=== PATIENT | male | born 1980 ===

== ENCOUNTER 2017-04-01 10:17 | Emergency (ER) | payer OTHER ==
[2017-04-01 11:00] VITALS: BP 139/85; PULSE 64; RESP 18; TEMP 98; O2SAT 99
--- NOTE | 2017-04-01 11:32 | ED PDOC ---
HPI: General Adult Time Seen by Provider: 04/01/17 11:25 Chief Complaint (Nursing): Abdominal Pain Chief Complaint (Provider): flank pain History Per: Patient History/Exam Limitations: no limitations Additional Complaint(s): 36yo male comes to the ED complains of right upper flank pain radiating into the scrotum. He reports that he has had similar pain with renal stones, but this pain feels worse. Reports multiple episodes of vomiting and diarrhea since last night. Denies dysuria. Denies hematuria- but reports "urine has been cloudy." Denies chest pain or shortness of breath. Denies scrotal pain or swelling. Denies penile discharge. Past Medical History Reviewed: Historical Data, Nursing Documentation, Vital Signs Vital Signs: Last Vital Signs Temp 98 F 04/01/17 10:57 Pulse 64 04/01/17 10:57 Resp 18 04/01/17 10:57 BP 139/85 04/01/17 10:57 Pulse Ox 99 04/01/17 14:54 - Surgical History Surgical History: Appendectomy, Tonsillectomy - Family History Family History: States: Unknown Family Hx - Immunization History Hx Tetanus Toxoid Vaccination: No Hx Influenza Vaccination: No Hx Pneumococcal Vaccination: No - Allergies Allergies/Adverse Reactions: Allergies Allergy/AdvReac Type Severity Reaction Status Date / Time No Known Allergies Allergy Verified 04/01/17 10:57 Review of Systems ROS Statement: Except As Marked, All Systems Reviewed And Found Negative Constitutional: Negative for: Fever Cardiovascular: Negative for: Chest Pain, Palpitations, Paroxysmal Noc. Dyspnea , Edema, Light Headedness, Other Respiratory: Negative for: Cough, Shortness of Breath, SOB with Exertion, Wheezing Gastrointestinal: Positive for: Vomiting, Abdominal Pain, Diarrhea Genitourinary Male: Negative for: Dysuria, Hematuria (darkened color) Musculoskeletal: Positive for: Back Pain (R sided flank) Skin: Negative for: Rash Physical Exam - Reviewed Nursing Documentation Reviewed: Yes Vital Signs Reviewed: Yes - Physical Exam Appears: Positive for: Well, Non-toxic, No Acute Distress Head Exam: Positive for: ATRAUMATIC, NORMAL INSPECTION, NORMOCEPHALIC Skin: Positive for: Warm, Dry Eye Exam: Positive for: EOMI, PERRL Cardiovascular/Chest: Positive for: Regular Rate, Rhythm Respiratory: Positive for: Normal Breath Sounds. Negative for: Rales, Rhonchi, Wheezing Gastrointestinal/Abdominal: Positive for: Normal Exam, Bowel Sounds, Soft. Negative for: Tenderness, Guarding, Rebound Back: Negative for: L CVA Tenderness, R CVA Tenderness Extremity: Positive for: Normal ROM Neurologic/Psych: Positive for: Alert - Laboratory Results Result Diagrams: 04/01/17 12:20 04/01/17 12:20 - ECG O2 Sat by Pulse Oximetry: 99 (RA) Pulse Ox Interpretation: Normal Medical Decision Making Medical Decision Makin Differential includes renal colic vs pancreatitis vs UTI Plan: CT abd/pel w/o Labs IV Fluids Toradol Morphine Urine culture reassess 1:52PM CT negative for stone. UA shows hematuria- likely passed stone. UA shows trace leukocytes and only 5 wbc and could be contanimated as large amount of blood. Chance that there is radiolucent stone but no sign of hydronephrosis on CT. Will give referral to urology. CBC WNL and creatinine and GFR WNL. Patient is afebrile and well appearing. He reports persistent back pain, described as spasm to R sided of back. Valium also ordered.. CT abd/pel Findings Lower thorax: unremarkable Liver: unremarkable. no gross lesion or ductal dilation. Gallbladder and bile ducts: unremarkable. Pancreas: unremarkable. no gross lesion or ductile dilation. Spleen: unremarkable. adrenals: unremarkable. no mass kidneys and ureter: unremarkable. no hydronephrosis. no solid mass. vasculature: unremarkable. no aortic aneurysm. bowel: unremarkable. no obstruction. no gross mural thickening. appendix: unremarkable. normal appendix. peritoneum: unremarkable. no free fluid. no free air. lymph nodes: unremarkable. no enlarged lymph nodes. bladder: unremarkable. reproductive: unremarkable. bones: no acute fracture other findings: none Impression: no significant or acute findings to account for/related to the clinical presentation. Guerrero unremarkable noncontrast enhanced CT of the abdomen and pelvis. 2:50PM Patient is now pain free. He is tolerating po and well appearing. Ucx sent. Will dc patient. Disposition - Clinical Impression Clinical Impression: Hematuria - Disposition Referrals: Bhupendra Stephen MD [Medical Doctor] - Disposition: Routine/Home Disposition Time: 13:55 Condition: GOOD Additional Instructions: Follow up with PMD within 2 days. Return to ED if condition worsens. Follow up with urology within 2 days. Increase fluids. Instructions: Acute Hematuria (ED), Acute Low Back Pain (ED) Forms: [facility] ED School/Work Excuse Additional Comments - Additional Comments Additional Comments: Scribe Attestation Documented by Adam Hewitt acting as a scribe for Matthew Maguire MD. Provider Attestation: All medical record entries made by the Scribe were at my direction and personally dictated by me. I have reviewed the chart and agree that the record accurately reflects my personal performance of the history, physical exam, medical decision making, and the department course for this patient. I have also personally directed, reviewed, and agree with the discharge instructions and disposition.
[2017-04-01] MEDS ORDERED: Sodium Chloride 0.9% 1,000 ML IV SCH (11:45)
[2017-04-01 12:27] LABS: BASO % 0.4 % (0.0-2.0); EOS # 0.1 K/uL (0.0-0.7); EOS % 1.4 % (0.0-4.0); LYMPH # 1.8 K/uL (1.0-4.3); LYMPH % 17.8 % (20.0-40.0); MEAN CELL VOLUME 89.5 fl (80.0-94.0); MEAN CORPUSCULAR HEMOGLOBIN 30.9 pg (27.0-31.0); MEAN CORPUSCULAR HGB CONC 34.5 g/dL (33.0-37.0); MEAN PLATELET VOLUME 7.7 fl (7.2-11.7); MONO # 0.6 K/uL (0.0-0.8); MONO % 6.3 % (0.0-10.0); NEUT # 7.4 K/uL (1.8-7.0); NEUT % 74.1 % (50.0-75.0); NRBC % 0.1 % (0.0-0.0); RED CELL DISTRIBUTION WIDTH 12.9 % (11.5-14.5); WHITE BLOOD COUNT 9.9 K/uL (4.8-10.8)
[2017-04-01 12:48] LABS: ALB/GLOB RATIO 1.4 (1.0-2.1); ALKALINE PHOSPHATASE 67 U/L (38-126); ALT/SGPT 57 U/L (21-72); AST/SGOT 32 U/L (17-59); BILIRUBIN,TOTAL 0.4 mg/dl (0.2-1.3); BLOOD UREA NITROGEN 13 mg/dl (9-20); CALCIUM 9.4 mg/dL (8.4-10.2); CARBON DIOXIDE 28 mmol/L (22-30); CHLORIDE 104 mmol/L (98-107); GFR AFRICAN-AMERICAN > 60; GLUCOSE,RANDOM 89 mg/dL (75-110); LIPASE 57 U/L (23-300); POTASSIUM 4.1 MMOL/L (3.6-5.0); SODIUM 143 mmol/l (132-148); TOTAL PROTEIN 7.9 G/DL (6.3-8.2)
[2017-04-01 13:26] LABS: RBC URINE 265 /hpf (0-3); URINE BACTERIA RARE (<OCC); URINE BILIRUBIN NEGATIVE (NEGATIVE); URINE BLOOD LARGE (NEGATIVE); URINE COLOR STRAW (YELLOW); URINE GLUCOSE (UA) NEG (Normal); URINE KETONE NEGATIVE (NEGATIVE); URINE LEUKOCYTE ESTERASE TRACE Leu/uL (Negative); URINE PROTEIN NEGATIVE (NEGATIVE); URINE UROBILINOGEN 0.2-1.0 mg/dL (0.2-1.0); WBC URINE 5 /hpf (0-5)
--- NOTE | 2017-04-01 13:36 | CT ---
PROCEDURE: CT Abdomen and Pelvis without intravenous contrast HISTORY: abdominal pain, dysuria, hematuria,Relevant medical history: Renal calculus disease COMPARISON: None. TECHNIQUE: Unenhanced study. Neither oral nor intravenous contrast administered. Radiation dose: Total exam DLP = 856.49 of mGy-cm. This CT exam was performed using one or more of the following dose reduction techniques: Automated exposure control, adjustment of the mA and/or kV according to patient size, and/or use of iterative reconstruction technique. FINDINGS: LOWER THORAX: Unremarkable. LIVER: Unremarkable. No gross lesion or ductal dilatation. GALLBLADDER AND BILE DUCTS: Unremarkable. PANCREAS: Unremarkable. No gross lesion or ductal dilatation. SPLEEN: Unremarkable. ADRENALS: Unremarkable. No mass. KIDNEYS AND URETERS: Unremarkable. No hydronephrosis. No solid mass. VASCULATURE: Unremarkable. No aortic aneurysm. BOWEL: Unremarkable. No obstruction. No gross mural thickening. APPENDIX: Unremarkable. Normal appendix. PERITONEUM: Unremarkable. No free fluid. No free air. LYMPH NODES: Unremarkable. No enlarged lymph nodes. BLADDER: Unremarkable. REPRODUCTIVE: Unremarkable. BONES: No acute fracture. OTHER FINDINGS: None. IMPRESSION: No significant or acute findings to account for/ related to the clinical presentation. KeyUnremarkable non contrast enhanced CT of the abdomen and pelvis.
[2017-04-01] MEDS ORDERED: diaZEpam 10 mg/2 ml Inj IVP ONE (13:59)
== END 2017-04-01 14:58 | disposition home or self-care (01) ==
LOC: H.ER 10:17
DX: R10.9 Unspecified abdominal pain (principal); R30.0 Dysuria; R31.9 Hematuria, unspecified

== ENCOUNTER 2018-08-26 23:09 | Emergency (ER) | payer OTHER ==
[2018-08-27 00:02] VITALS: O2SAT 99
[2018-08-27] MEDS ORDERED: Sodium Chloride 0.9% 1,000 ML IV STA (00:39)
[2018-08-27 01:23] LABS: BASO % 0.4 % (0.0-2.0); EOS # 0.2 K/uL (0.0-0.7); EOS % 1.8 % (0.0-4.0); HEMOGLOBIN 15.4 g/dL (12.0-18.0); LYMPH # 3.5 K/uL (1.0-4.3); LYMPH % 41.8 % (20.0-40.0); MEAN CORPUSCULAR HEMOGLOBIN 30.5 pg (27.0-31.0); MEAN CORPUSCULAR HGB CONC 34.3 g/dL (33.0-37.0); MEAN PLATELET VOLUME 7.8 fl (7.2-11.7); MONO # 0.6 K/uL (0.0-0.8); MONO % 6.6 % (0.0-10.0); NEUT # 4.1 K/uL (1.8-7.0); NEUT % 49.4 % (50.0-75.0); NRBC % 0.1 % (0.0-0.0); RBC 5.05 Mil/uL (4.40-5.90); RED CELL DISTRIBUTION WIDTH 12.9 % (11.5-14.5); WHITE BLOOD COUNT 8.4 K/uL (4.8-10.8)
[2018-08-27 01:28] LABS: URINE BILIRUBIN NEGATIVE (NEGATIVE); URINE BLOOD SMALL (NEGATIVE); URINE CLARITY CLEAR (Clear); URINE COLOR YELLOW (YELLOW); URINE GLUCOSE (UA) NEG (Normal); URINE LEUKOCYTE ESTERASE NEG Leu/uL (Negative); URINE PROTEIN NEGATIVE (NEGATIVE); URINE UROBILINOGEN 0.2-1.0 mg/dL (0.2-1.0)
[2018-08-27 01:32] LABS: ALB/GLOB RATIO 1.2 (1.0-2.1); ALBUMIN 4.5 g/dL (3.5-5.0); ALT/SGPT 60 U/L (21-72); AST/SGOT 38 U/L (17-59); BLOOD UREA NITROGEN 20 mg/dl (9-20); CALCIUM 9.8 mg/dL (8.4-10.2); GFR NON-AFRICAN AMERICAN > 60
--- NOTE | 2018-08-27 01:47 | ED PDOC ---
HPI: Back Time Seen by Provider: 08/27/18 00:37 Chief Complaint (Nursing): Back Pain Chief Complaint (Provider): Back pain History Per: Patient History/Exam Limitations: no limitations Onset/Duration Of Symptoms: Hrs (24x hours), Persistent Current Symptoms Are (Timing): Still Present Severity: Moderate Additional Complaint(s): 37 year old male with a past medical history of ureteral calculi presents to the ED with complaints of right flank pain that started 24x hours ago. Patient states that the flank pain accompanied by pain with urination started at 3am this morning and has been persistent and worsening since. Patient denies having nausea or vomiting. PMD: None provided Past Medical History Reviewed: Historical Data, Nursing Documentation, Vital Signs Vital Signs: Last Vital Signs Temp 98.1 F 08/26/18 23:59 Pulse 50 L 08/26/18 23:59 Resp 17 08/26/18 23:59 BP 124/81 08/26/18 23:59 Pulse Ox 99 08/26/18 23:59 - Medical History PMH: Kidney Stones - Surgical History Surgical History: Appendectomy, Tonsillectomy Other surgeries: kidney stones - Family History Family History: States: No Known Family Hx - Social History Current smoker - smoking cessation education provided: No Alcohol: None Drugs: Denies - Immunization History Hx Tetanus Toxoid Vaccination: No Hx Influenza Vaccination: No Hx Pneumococcal Vaccination: No - Home Medications Home Medications: Ambulatory Orders Medication Instructions Recorded Cyclobenzaprine [Cyclobenzaprine 10 mg PO TID PRN #15 tab 08/27/18 HCl] - Allergies Allergies/Adverse Reactions: Allergies Allergy/AdvReac Type Severity Reaction Status Date / Time No Known Allergies Allergy Verified 04/01/17 10:57 Review of Systems ROS Statement: Except As Marked, All Systems Reviewed And Found Negative Genitourinary Male: Positive for: Dysuria Musculoskeletal: Positive for: Back Pain (right flank pain) Physical Exam - Reviewed Nursing Documentation Reviewed: Yes Vital Signs Reviewed: Yes - Physical Exam Appears: Positive for: Well, Non-toxic, No Acute Distress Head Exam: Positive for: ATRAUMATIC, NORMOCEPHALIC Skin: Positive for: Normal Color Cardiovascular/Chest: Positive for: Regular Rate, Rhythm Respiratory: Positive for: Normal Breath Sounds Back: Positive for: R CVA Tenderness (mild) Neurologic/Psych: Positive for: Alert, Oriented (3x) - Laboratory Results Result Diagrams: 08/27/18 00:48 08/27/18 00:48 - ECG O2 Sat by Pulse Oximetry: 99 (RA) Pulse Ox Interpretation: Normal - CT Scan/US abd and pelvis Other Rad Studies (CT/US): Read By Radiologist, Radiology Report Reviewed (seen MDM note) Medical Decision Making Medical Decision Makin:37 Initial impression: 37 year old male with right flank pain insetting of known ureteral calculi. Initial plan: * CT abd and pelvis w/o PO or IV contrast * CMP * udip * CBC with differential * NaCl 0.9% 1,000 mL IV 1,000 mls/hr * toradol 30 mg IV * urinalysis * reevaluation 3:30 CT abd and pelvis viewed by me, read by radiologist: shows no acute findings. Labs show no significant abnormalities. Upon provider reevaluation patient is feeling better, is medically stable, and requires no further treatment in the ED at this time. Patient will be discharged with Rx for cyclobenzaprine for flank pain. Counseling was provided and all que stions were answered regarding diagnosis and need for follow up with PMD. There is agreement to discharge plan. Return if symptoms persist or worsen. Scribe Attestation: Documented by Cora Groves, acting as a scribe for Quentin Hernandez MD. Provider Scribe Attestation: All medical record entries made by the Scribe were at my direction and personally dictated by me. I have reviewed the chart and agree that the record accurately reflects my personal performance of the history, physical exam, medical decision making, and the department course for this patient. I have also personally directed, reviewed, and agree with the discharge instructions and disposition Disposition - Clinical Impression Clinical Impression: Flank pain - Disposition Disposition Time: 03:30 Condition: STABLE Prescriptions: Cyclobenzaprine [Cyclobenzaprine HCl] 10 mg PO TID PRN #15 tab PRN Reason: flank/back pain Instructions: Flank Pain Forms: [facility] (Italian)
[2018-08-27 03:59] VITALS: BP 122/52; PULSE 66; RESP 15; TEMP 98.4
--- NOTE | 2018-08-27 15:07 | CT ---
Date of service: 08/27/2018 PROCEDURE: CT Abdomen and Pelvis without intravenous contrast HISTORY: Renal colic COMPARISON: 04/01/2017. TECHNIQUE: CT scan of the abdomen and pelvis was performed without administration of intravenous contrast. Oral contrast was not administered. Coronal and sagittal reformatted images were obtained. . Radiation dose: Total exam DLP = 610.24 mGy-cm. This CT exam was performed using one or more of the following dose reduction techniques: Automated exposure control, adjustment of the mA and/or kV according to patient size, and/or use of iterative reconstruction technique. FINDINGS: LOWER THORAX: The visualized lungs are clear. LIVER: Mild hepatomegaly and fatty liver. No intrahepatic ductal dilatation. GALLBLADDER AND BILE DUCTS: The gallbladder is contracted. No biliary dilatation PANCREAS: Normal in size. No ductal dilatation. SPLEEN: Normal in size. ADRENALS: Normal in size. No discrete nodule. KIDNEYS AND URETERS: Normal in size without nephrolithiasis. No hydronephrosis. VASCULATURE: No aortic aneurysm. BOWEL: The small bowel loops are normal in caliber. The colon is normal in size. Mild sigmoid diverticulosis without CT evidence for acute diverticulitis. No bowel dilatation or wall thickening. No bowel obstruction. APPENDIX: Normal appendix. There is a surgical clip in the right lower quadrant. PERITONEUM: No free fluid. No free air. LYMPH NODES: No enlarged lymph nodes. BLADDER: Decompressed. REPRODUCTIVE: The prostate gland is normal in size. BONES: No acute fracture. Mild degenerative disc disease in the lower thoracic spine. OTHER FINDINGS: None. IMPRESSION: No acute abdominal or pelvic abnormality. Mild sigmoid diverticulosis without CT evidence for acute diverticulitis. Mild hepatomegaly and fatty liver. Six
== END 2018-08-27 03:55 | disposition home or self-care (01) ==
LOC: H.ER 23:09
DX: R10.9 Unspecified abdominal pain (principal); Z87.442 Personal history of urinary calculi
CPT/HCPCS: 74176; 80053; 81003; 85025; 96360; 99283; J1885; J7030